=== PATIENT | female | born 1995 | race Caucasian/White ===

== ENCOUNTER 2021-09-23 09:45 | Outpatient (CLI) | payer OTHER ==
[2021-09-23 12:31] VITALS: BP 121/69; PULSE 86; RESP 14; TEMP 97.2
--- NOTE | 2021-09-26 08:31 | P.MSEPDOC ---
Presenting Problems - Arrival Data Date of Arrival on Unit: 09/23/21 Time of Arrival on Unit: 09:54 Mode of Transport: Ambulatory - Complaint OB-Reason for Admission/Chief Complaint: Possible Onset of Labor Medical History - Information : 4 Para: 2 Term: 2 : 0 Abortions: Spontaneous or Elective: 1 Number of Living Children: 2 - Gestational Age Gestational Age by CHATA (wks/days): 39 Weeks and 2 Days Review of Systems - Review of Systems Constitutional: No problems Breast: No problems ENT: No problems Cardiovascular: No problems Respiratory: No problems Gastrointestinal: No problems Genitourinary: No problems Musculoskeletal: No problems Neurological: No problems Skin: No problems Vital Signs - Temperature Temperature: 97.2 F Temperature Source: Temporal Artery Scan - Pulse Right Brachial Pulse Rate: 86 Pulse Assessment Method: Automatic Cuff - Respirations Respiratory Rate: 14 Oxygen Delivery Method: Room Air - Blood Pressure Right Arm Blood Pressure: 121/69 Blood Pressure Mean: 86 Blood Pressure Source: Automatic Cuff Medical Screen Scoring - Cervical Exam Dilation (cm): 3 Effacement (%): 70 Station: -2 Membranes: Intact - Uterine Contractions Frequency From (mins): 4 Frequency To (mins): 5 Duration From (seconds): 30 Duration To (seconds): 50 Intensity: Moderate Resting: Soft to palpation - Assessment - Baby A Baseline FHR: 125 Heart Rate - NICHD Category: Category I (Normal) NST: Reactive Physician Notification - Physician Notified Physician Notified Date: 09/23/21 Physician Notified Time: 12:03 Physician: Florence Gagnon New Order Received: Yes - Notification Comment Comment: d/c home Maternal Triage Index - Maternal Triage Index Presenting for scheduled procedure w/no complaint: No - Stat/Priority 1 Stat Priority 1: No - Urgent/Priority 2 Urgent Priority 2: No - Prompt/Priority 3 Prompt Priority 3: No - Non-Urgent/Priority 4 Non-Urgent Priority 4: Yes Criteria Met for Priority 4: r/o labor Disposition - Disposition OB Disposition: Discharge to home Discharge Date: 09/23/21 Discharge Time: 12:05 I agree with the RN Medical Screening Exam: Yes Case reviewed; plan agreed upon as documented in EMR&OBIX.: Yes Diagnosis: FALSE LABOR AT OR AFTER 37 COMPLETED WEEKS OF GESTATION
== END 2021-09-23 12:33 | disposition home or self-care (01) ==
LOC: FBPOP 09:45
PROVIDERS: ATTEND Obstetrics & Gynecology
DX: O47.1 False labor at or after 37 completed weeks of gestation (principal); Z3A.39 39 weeks gestation of pregnancy
CPT/HCPCS: 59025; G0463; 99215

== ENCOUNTER 2021-09-23 13:11 | Inpatient (IN) | payer OTHER ==
[2021-09-23] MEDS ORDERED: LIDOCAINE 1% (PF) 10 MG/ML (30 ML SDV) SQ PRN (14:32)
[2021-09-23] MEDS ORDERED: TERBUTALINE 1 MG/ML VIAL SQ PRN (14:32)
[2021-09-23] MEDS ORDERED: OXYTOCIN 10 UNIT/ML 1 ML VIAL IM PRN (14:32)
[2021-09-23] MEDS ORDERED: METHYLERGONOVINE 0.2 MG/ML 1 ML AMP IM PRN (14:32)
[2021-09-23] MEDS ORDERED: CARBOPROST TROMETHAMINE 250 MCG/ML 1 ML AMP IM PRN (14:32)
[2021-09-23] MEDS ORDERED: LACTATED RINGERS 1,000 ML IV SCH (14:45)
[2021-09-23] MEDS ORDERED: OXYTOCIN 30 UNITS/500 ML NS 30 UNIT in SALINE 1 500ML.BAG IV SCH ×2 (14:45→18:00)
[2021-09-23 14:56] LABS: Amphetamine Screen,Urine Not Detected (NotDetected); Barbiturate Screen,Urine Not Detected (NotDetected); Benzodiazepines Screen,Urine Not Detected (NotDetected); Cocaine Screen,Urine Not Detected (NotDetected); Methadone Screen, Urine Not Detected (NotDetected); Opiate Screen,Urine Not Detected (NotDetected); Oxycodone Screen, Urine Not Detected (NotDetected); Phencyclidine Screen,Urine Not Detected (NotDetected); Tricyclic Antidepressant,Urine Not Detected (NotDetected); Urn Cannabinoid Scrn Detected (NotDetected)
[2021-09-23 15:11] LABS: Basophils % (A) 0 %; Eosinophils # (A) 0.1 k/uL (0-0.7); Eosinophils % (A) 1 %; HCT 39.3 % (34.0-46.0); HGB 12.9 gm/dL (11.4-16.0); Lymphocytes % (A) 17 %; MCH 31.7 pg (25.0-35.0); MCHC 32.9 g/dL (31.0-37.0); MCV 96.5 fL (80.0-100.0); Mean Platelet Volume 10.4; Monocytes # (A) 0.4 k/uL (0-1.0); Monocytes % (A) 4 %; Neutrophils % (A) 76 %; Platelet Count 285 k/uL (150-450); RBC 4.07 m/uL (3.80-5.40); RDW 13.7 % (11.5-15.5); WBC 11.8 k/uL (3.8-10.6)
[2021-09-23] MEDS ORDERED: ROPIVACAINE 5MG/ML 20ML VIAL ONE (15:23)
[2021-09-23] MEDS ORDERED: fentaNYL (PF) 50 MCG/ML 5 ML AMP ONE (15:23)
[2021-09-23] MEDS ORDERED: SODIUM CHLORIDE 0.9% 100 ML BAG ONE (15:23)
--- NOTE | 2021-09-23 17:06 | P.HPOB ---
History of Present Illness H&P Date: 09/23/21 Chief Complaint: labor 26 year old presents at 39 weeks and 2 days and labor. Her cervix changed from 3 centers to 4 centers dilated, 90% effaced, and -2 station. She is lucrecia every 3-5 minutes. heart tones 135 with moderate variability and reactive. Review of Systems All systems: negative Constitutional: Denies chills, Denies fever Eyes: denies blurred vision, denies pain Ears, nose, mouth and throat: Denies headache, Denies sore throat Cardiovascular: Denies chest pain, Denies shortness of breath Respiratory: Denies cough Gastrointestinal: Denies abdominal pain, Denies diarrhea, Denies nausea, Denies vomiting Genitourinary: Denies dysuria, Denies hematuria Musculoskeletal: Denies myalgias Integumentary: Denies pruritus, Denies rash Neurological: Denies numbness, Denies weakness Psychiatric: Denies anxiety, Denies depression Endocrine: Denies fatigue, Denies weight change Past Medical History Past Medical History: No Reported History Additional Past Medical History / Comment(s): Obstetric history: She's had 2 previous vaginal deliveries. She's had one miscarriage. This is her fourth and she's had care with Dr. Bruce. Blood type is O+, and because negative, rubella immune, hepatitis B negative, HIV nonreactive, GBS negative, HSV positive. Patient's smokes cigarettes about a pack a day and smokes marijuana daily. History of Any Multi-Drug Resistant Organisms: None Reported Additional Past Surgical History / Comment(s): D&C 2017 Past Anesthesia/Blood Transfusion Reactions: No Reported Reaction Past Psychological History: Depression Smoking Status: Current every day smoker Past Alcohol Use History: None Reported Past Drug Use History: Marijuana Additional Drug Use History / Comment(s): daily marijuana use - Past Family History Father Family Medical History: No Reported History Medications and Allergies Home Medications Medication Instructions Recorded Confirmed Type Pnv,Calcium 72/Iron/Folic Acid 1 tab PO DAILY 09/23/21 09/23/21 History [ Plus Tablet] valACYclovir [Valtrex] 500 mg PO DAILY 09/23/21 09/23/21 History Allergies Allergy/AdvReac Type Severity Reaction Status Date / Time No Known Allergies Allergy Verified 09/23/21 14:32 Exam Osteopathic Statement: *. No significant issues noted on an osteopathic structural exam other than those noted in the History and Physical/Consult. Vital Signs Temp Pulse Resp BP 09/23/21 15:09 97.2 F L 83 16 117/62 Intake and Output 09/23/21 09/23/21 09/23/21 06:59 14:59 22:59 Other: Weight 72.121 kg 72.121 kg Heart: Regular rate and rhythm Lungs: Clear to auscultation bilaterally Abdomen: Soft, nontender External pelvic exam: No lesions noted Extremities: Negative Homans sign Results Result Diagrams: 09/23/21 15:08 Abnormal Lab Results - Last 24 Hours (Table) 09/23/21 09/23/21 Range/Units 14:35 15:08 WBC 11.8 H (3.8-10.6) k/uL Neutrophils # 9.0 H (1.3-7.7) k/uL U Marijuana (THC) Screen Detected H (NotDetected) Assessment and Plan (1) Normal labor Current Visit: Yes Status: Acute Code(s): O80 - ENCOUNTER FOR FULL-TERM UNCOMPLICATED DELIVERY; Z37.9 - OUTCOME OF DELIVERY, UNSPECIFIED SNOMED Code(s): 20928931 Plan: 1. Admit to family place 2. Anticipate normal vaginal delivery
[2021-09-23] MEDS ORDERED: ACETAMINOPHEN TAB 325 MG TAB PO PRN (17:53)
[2021-09-23] MEDS ORDERED: SIMETHICONE 80 MG CHEWABLE PO PRN (17:53)
[2021-09-23] MEDS ORDERED: HYDROCORTISONE 2.5% RECTAL CREAM 30 GM TUBE RECTAL PRN (17:53)
[2021-09-23] MEDS ORDERED: LANOLIN CREAM 5 GM TUBE TOPICAL PRN (17:53)
[2021-09-23] MEDS ORDERED: diphenhydrAMINE 25 MG CAP PO PRN (17:53)
[2021-09-23] MEDS ORDERED: diphenhydrAMINE 50 MG/ML 1 ML VIAL IVP PRN ×2 (17:53)
[2021-09-23] MEDS ORDERED: diphenhydrAMINE 50 MG CAP PO PRN (17:53)
[2021-09-23] MEDS ORDERED: BENZOCAINE/MENTHOL SPRAY 1 GM/SPRAY AEROSOL TOPICAL PRN (17:53)
[2021-09-23] MEDS ORDERED: ZOLPIDEM 5 MG TAB PO PRN (17:53)
[2021-09-23] MEDS: NICOTINE 21MG/24HR PATCH TRANSDERM SCH (18:47)
[2021-09-23] MEDS: SENNOSIDES-DOCUSATE SODIUM 1 EACH TAB PO SCH (21:45)
[2021-09-24] MEDS: IBUPROFEN 600 MG TAB PO PRN ×3 (00:41→16:26)
[2021-09-24 07:10] LABS: Basophils % (A) 0 %; Eosinophils # (A) 0.1 k/uL (0-0.7); Eosinophils % (A) 1 %; HCT 37.6 % (34.0-46.0); HGB 12.4 gm/dL (11.4-16.0); Lymphocytes # (A) 2.1 k/uL (1.0-4.8); Lymphocytes % (A) 21 %; MCH 32.2 pg (25.0-35.0); MCV 97.5 fL (80.0-100.0); Mean Platelet Volume 10.4; Monocytes # (A) 0.6 k/uL (0-1.0); Monocytes % (A) 6 %; Neutrophils # (A) 7.1 k/uL (1.3-7.7); Neutrophils % (A) 71 %; Platelet Count 196 k/uL (150-450); RBC 3.85 m/uL (3.80-5.40); RDW 13.1 % (11.5-15.5)
[2021-09-24] MEDS: SENNOSIDES-DOCUSATE SODIUM 1 EACH TAB PO SCH (08:21)
[2021-09-24] MEDS: NICOTINE 21MG/24HR PATCH TRANSDERM SCH (09:11)
[2021-09-24 09:32] VITALS: RESP 18
--- NOTE | 2021-09-24 10:18 | P.PROBDLV ---
Vaginal Delivery Note - . Vaginal Delivery Note: 26 year old presents at 39 weeks and 2 days and labor. Her cervix changed from 3 centers to 4 centers dilated, 90% effaced, and -2 station. She is lucrecia every 3-5 minutes. heart tones 135 with moderate variability and reactive. She got an epidural and was comfortable. Amniotomy performed at 1643 and clear fluid noted. Patient was also on Pitocin augmentation to regulate her contractions. Her cervix was completely dilated at 1736. She pushed, delivered a viable female over intact perineum under epidural anesthesia at 1740. Head delivered OA, anterior shoulder delivered gentle downward guidance for by posterior shoulder and rest of body. Nose and mouth bulb suctioned, cord cut and cut, placed mother's abdomen. Apgars 8, 9, weight 6 lbs. 12 oz. Placenta delivered spontaneously, intact with three-vessel cord at 1743. Vagina, cervix, perineum inspected. No lacerations noted. Quantitative blood loss was 320 mL mother and baby in stable condition.
--- NOTE | 2021-09-24 10:20 | P.DS ---
Providers Date of admission: 09/23/21 14:21 Expected date of discharge: 09/24/21 Attending physician: Vanna Bruce Primary care physician: Stated None - Discharge Diagnosis(es) (1) Normal labor Current Visit: Yes Status: Resolved (2) Normal vaginal delivery Current Visit: Yes Status: Acute Hospital Course: Patient presented in active labor. She underwent a normal vaginal delivery. course uncomplicated. She denies nausea, vomiting, chest pain, shortness of breath or any calf pain. Patient will be discharged home day #1 in stable condition to follow-up with Dr. Bruce in 6 weeks. Plan - Discharge Summary New Discharge Prescriptions: New Ibuprofen [Motrin] 600 mg PO Q6HR PRN #30 tab PRN Reason: Mild Pain (Scale 1 To 3) No Action valACYclovir [Valtrex] 500 mg PO DAILY Pnv,Calcium 72/Iron/Folic Acid [ Plus Tablet] 1 tab PO DAILY Discharge Medication List Pnv,Calcium 72/Iron/Folic Acid [ Plus Tablet] 1 tab PO DAILY 09/23/21 [History] valACYclovir [Valtrex] 500 mg PO DAILY 09/23/21 [History] Ibuprofen [Motrin] 600 mg PO Q6HR PRN #30 tab 09/24/21 [Rx] Follow up Appointment(s)/Referral(s): Vanna Bruce DO [Doctor of Osteopathic Medicine] - 6 Weeks Discharge Disposition: HOME SELF-CARE
[2021-09-24 16:29] VITALS: BP 111/75; PULSE 76; TEMP 98.2
== END 2021-09-24 18:40 | disposition home or self-care (01) | DRG 807 ==
LOC: FBPOP 13:11 → 4FBP 14:21
PROVIDERS: ADMIT Obstetrics & Gynecology; ATTEND Obstetrics & Gynecology
PROC: 00HU33Z Insertion of Infusion Device into Spinal Canal, Percutaneous Approach (ICD-10-PCS; principal; 2021-09-23)
PROC: 10E0XZZ Delivery of Products of Conception, External Approach (ICD-10-PCS; principal; 2021-09-23)
PROC: 3E0R3NZ Introduction of Analgesics, Hypnotics, Sedatives into Spinal Canal, Percutaneous Approach (ICD-10-PCS; principal; 2021-09-23)
DX: O99.334 Smoking (tobacco) complicating childbirth (principal); Z37.0 Single live birth; F17.210 Nicotine dependence, cigarettes, uncomplicated; O99.344 Other mental disorders complicating childbirth; F32.A Depression, unspecified; Z3A.39 39 weeks gestation of pregnancy
CPT/HCPCS: 80306; 85025; 86850; 86900; 86901